=== PATIENT | female | born 1990 | race Caucasian/White ===

== ENCOUNTER → 2017-06-06 | Outpatient (CLI) | payer BC ==
[~2017-06-06] MED LIST: ACETAMINOPHEN-1 EAC1 PO; AMOXICILLIN500 M1 PO; FLEXERIL PO; HYDROCODONE-AP1 EAC6; IBUPROFEN 800800 MG PO; NOHOMEMEDICATIONS; PERCOCET 5-3251 EACH PO; ULTRAM 50MG TAB50 MG PO; ZOFRAN ODT4 MG PO
== END ==
LOC: M.ULTRA 10:00
DX: N63.20 Unspecified lump in the left breast, unspecified quadrant (principal)

== ENCOUNTER 2018-10-16 08:18 | Emergency (ER) | payer BC ==
[~2018-10-16] VITALS: Ht 154.9 cm; Wt 49.9 kg
[2018-10-16] MEDS ORDERED: KEFLEX500 M1 PO (08:49)
[2018-10-16] MEDS ORDERED: NORCO 5-325 TA1 EAC1 PO (08:49)
[2018-10-16 08:57] VITALS: BP 110/76
== END 2018-10-16 09:03 | disposition home or self-care (01) ==
LOC: M.ERS 08:18
DX: L03.115 Cellulitis of right lower limb (principal); F17.210 Nicotine dependence, cigarettes, uncomplicated